=== PATIENT | female | born 1980 | race Hispanic/Latino ===

== ENCOUNTER 2018-08-25 14:54 | Inpatient (IN) | payer OTHER, SELFPAY ==
[2018-08-25] MEDS ORDERED: BUTORPHANOL 1 MG/ML INJ IV PRN (15:53)
[2018-08-25] MEDS ORDERED: CARBOPROST TROME 250 MCG/ML IM PRN (15:53)
[2018-08-25] MEDS ORDERED: PROMETHAZINE 25 MG/ML VIAL IM PRN (15:53)
[2018-08-25] MEDS ORDERED: METHYLERGONOVINE 0.2MG/ML AMP IM PRN (15:53)
[2018-08-25] MEDS ORDERED: Ringers Lactate 1,000 ML IV PRN (15:53)
[2018-08-25] MEDS ORDERED: MEPERIDINE HCL 25 MG/0.5 ML IV PRN (15:53)
[2018-08-25] MEDS ORDERED: Ringers Lactate 1,000 ML IV SCH (16:00)
[2018-08-25] MEDS ORDERED: OXYTOCIN/LR 20 UNIT/1,000 ML BAG IV SCH ×2 (16:00→19:00)
[2018-08-25] MEDS ORDERED: OXYTOCIN/LR 20 UNIT/1,000 ML BAG IV ONE (16:06)
[2018-08-25 16:21] LABS: RPR Titer ND
[2018-08-25 16:24] LABS: Absolute Lymphocytes (CBC) 1.5 K/uL (0.7-4.9); Absolute Monocytes 0.5 K/uL (0.1-1.3); Absolute Neutrophil 7.5 K/uL (1.8-8.0); Basophils % 0.5 % (0-1.3); Eosinophils % 0.3 % (0-4.4); Hematocrit 33.4 % (36.0-45.0); MCH 29.9 pg (27.0-35.0); MPV 10.3 fL (7.6-11.3)
[2018-08-25 17:18] VITALS: BMI 40.9
[2018-08-25] MEDS ORDERED: LIDOCAINE 1% MPF 30 ML VIAL ONE (18:01)
[2018-08-25] MEDS ORDERED: DIPHENHYDRAMINE 25 MG TAB/CAP PO PRN (18:09)
[2018-08-25] MEDS ORDERED: DOCUSATE NA/SENNA CONC 1 TAB PO PRN (18:09)
[2018-08-25] MEDS ORDERED: Oxycodone HCl/Acetaminophen 1 TAB TAB PO PRN ×2 (18:09)
[2018-08-25] MEDS ORDERED: ACETAMINOPHEN 500 MG TAB PO PRN (18:09)
[2018-08-25] MEDS ORDERED: BISACODYL 10 MG RECTAL SUPP RECT PRN (18:09)
[2018-08-25] MEDS ORDERED: IBUPROFEN 200 MG TAB PO PRN (18:09)
[2018-08-26 00:27] LABS: RPR (Rapid Plasma Reagin) NON-REACT (NON-REACT)
--- NOTE | 2018-08-26 05:10 | OP ---
Surgeon: Abdulkadir Nelson MD Hospital Course: Radha Reaves is a 38-year-old, 3, para 2, 38 weeks 2 days, history of lupu s and on multiple medicines for lupus. Scheduled for induction tomorrow. Came in this evening in ac tive labor. Noted to be 4 to 5 cm with bulging membranes on admission. Then, spontaneous rupture of membranes during the nurses exam. Clear fluid. During the labor, the patient used Lamaze breathing techniques to best advantage. She was started on light Pitocin augmentation. Went rapidly to compl ete. Second stage of 10 minutes or less. Spontaneous vaginal delivery of an estimated 7.5 to 8 poun d female, Apgars of 8 and 9. Nuchal cord x1 very loosely. Schultze delivery of the placenta, which was inspected and noted to be intact and normal. Estimated blood loss 400 cc. Mild uterine hyperton icity, but responded to IV drip Pitocin and massage. Subclitoral laceration that stops just above th e urethra, 2-0 chromic under local infiltration, 4 to 5 stitches. The patient is Rh positive, immune to Rubella. Negative beta strep screen. Tolerated all procedures well. Final Diagnoses: Term intrauterine at 38 weeks, spontaneous vaginal delivery, lupus erythe matosus -- active nuchal cord loosely x1. RACHEL/MODL Voice ID: [id number] Report ID: [id number]
--- NOTE | 2018-08-26 12:24 | PREOPHP ---
Date of Admission: 08/25/2018 This is a 38-year-old, multiparous female, at 38 weeks 2 days with history of lupus. She is on numer ous anti-lupus medications. We had her planned for induction tomorrow. She came into labor and deli very with contractions and with exam. The nurse did membranes rupture. She is now 4-1/2 almost 5, 8 0%, very soft, geovani every 2 to 3 minutes. Right now, they do not seem to be very firm. Her I V has been started. She is beta strep negative. Full admission talk given. We will start Pitocin s oon and I anticipate very rapid delivery thereafter. Full talk given. RACHEL/SARA Voice ID: [id number]
[2018-08-26 16:39] VITALS: BP 148/78; TEMP 98.3
[2018-08-29 21:09] LABS: HBsAG Nonreactive (Nonreactive)
--- NOTE | 2018-09-03 09:02 | DS ---
Date of Discharge: 08/26/2018 Hospital Course: This is a 38-year-old, 3, para 2, 38 weeks and 2 days, was scheduled for in duction the next day, but came in an active labor 4 to 5 cm on admission. Went rapidly to complete. Delivered of an estimated 7-1/2 to 8 pound female, Apgars 8 and 9. Local infiltration for repair of first-degree laceration below the clitoris and above the urethra. Schultze delivery of the placenta . Uterus mildly hypotonic, but contracted down well with IV drip Pitocin and massage. Estimated blo od loss 400 cc. Rh positive, immune to rubella. Negative beta strep screen. The patient has a hist ory of having active lupus. Has been on Imuran, prednisone, and . 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 She cannot have Tdap because of her lupus. She is doing quite well at this time and has no problems or questions. Final Diagnoses: Intrauterine gestation 38 weeks 2 days, systemic lupus erythematosus under treatmen t, vaginal delivery. RACHEL/SARA Voice ID: [id number] Report ID: [id number]
== END 2018-08-26 21:00 | disposition home or self-care (01) | DRG 807 ==
LOC: L&D 14:54 → 2ND-WC 15:11
PROVIDERS: ADMIT Specialist; ATTEND Specialist
PROC: 10E0XZZ Delivery of Products of Conception, External Approach (ICD-10-PCS; principal; 2018-08-25)
PROC: 0HQ9XZZ Repair Perineum Skin, External Approach (ICD-10-PCS; 2018-08-25)
DX: O75.89 Other specified complications of labor and delivery (principal); Z37.0 Single live birth; M32.9 Systemic lupus erythematosus, unspecified; O69.81X0 Labor and delivery complicated by cord around neck, without compression, not applicable or unspecified; O62.4 Hypertonic, incoordinate, and prolonged uterine contractions; Z3A.38 38 weeks gestation of pregnancy; O71.82 Other specified trauma to perineum and vulva
CPT/HCPCS: 36415; 85025; 86592; 86901; 87340; J2210; J2590